=== PATIENT | male | born 1970 | race Caucasian/White ===

== ENCOUNTER 2017-02-08 19:50 | Emergency (ER) | payer BC, OTHER ==
[2017-02-08 20:15] VITALS: BP 114/55
[2017-02-08] MEDS ORDERED: HYDROmorphone 1 MG/ML Syringe IVPUSH ONE (20:39)
[2017-02-08] MEDS ORDERED: Ondansetron 4 MG/2 ML SDV IVPUSH ONE (20:39)
--- NOTE | 2017-02-08 22:22 | EDM.PDOC ---
ED HPI GENERAL MEDICAL PROBLEM - General Chief Complaint: Flank Pain Stated Complaint: LEFT FLANK PAIN Time Seen by Provider: 02/08/17 20:19 Source of Information: Reports: Patient History Limitations: Reports: No Limitations - History of Present Illness INITIAL COMMENTS - FREE TEXT/NARRATIVE: This is a 46-year-old male. Onset yesterday with back pain he thought that he might have thrown his back out due to the pain but it time it would come and go yesterday it wasn't really bad this morning but around 5 PM marked increased pain going into the left flank area now. He has a history of kidney stones in the past times one not sure which side it was on. He noticed his urine was dark this morning but he did not seen any blood. He's had no nausea or vomiting with the pain. Due to the intensity of the pain in the left flank he comes to the ER bleeding he has a kidney stone. The pain does not radiate into the groin at this time but stays in the left flank region. Left Flank Pain Score (Numeric/FACES): 8 - Related Data Home Meds: Home Meds Acetaminophen/oxyCODONE [Percocet 325-5 MG] 1 tab PO Q4H PRN #12 tablet [Rx] Ondansetron [Zofran ODT] 4 mg PO Q6H PRN #12 tab.dis 02/08/17 [Rx] Past Medical History Musculoskeletal History: Reports: Other (See Below) Other Musculoskeletal History: wrist fracture - Past Surgical History Male Surgical History: Reports: Vasectomy Social & Family History - Tobacco Use Smoking Status *Q: Never Smoker - Caffeine Use Caffeine Use: Reports: Coffee - Recreational Drug Use Recreational Drug Use: No ED ROS GENERAL - Review of Systems Review Of Systems: See Below Constitutional: Denies: Fever, Chills HEENT: Reports: No Symptoms Respiratory: Reports: No Symptoms Cardiovascular: Reports: No Symptoms Endocrine: Reports: No Symptoms GI/Abdominal: Reports: Abdominal Pain. Denies: Nausea, Vomiting : Reports: Flank Pain Musculoskeletal: Reports: No Symptoms Skin: Reports: No Symptoms Neurological: Reports: No Symptoms Psychiatric: Reports: No Symptoms Hematologic/Lymphatic: Reports: No Symptoms ED EXAM, GI/ABD - Physical Exam Exam: See Below Exam Limited By: No Limitations General Appearance: Alert, WD/WN, Mild Distress Eyes: Bilateral: Normal Appearance Ears: Normal External Exam Nose: Normal Inspection Throat/Mouth: Normal Inspection, Normal Lips, Normal Voice Head: Normocephalic Neck: Supple Respiratory/Chest: No Respiratory Distress, Lungs Clear Cardiovascular: Regular Rate, Rhythm, No Murmur GI/Abdominal: Soft, Other (He does have some mild left flank pain on percussion , no rib tenderness noted, no other abdominal tenderness on palpation) Back Exam: Normal Inspection, Other (Palpation of his lower back paraspinal muscles and midline reveals no tenderness whatsoever and there is no thoracic tenderness on palpation) Extremities: Normal Inspection, Normal Range of Motion Neurological: Alert, Oriented Psychiatric: Normal Affect, Normal Mood Skin Exam: Warm, Dry Course - Vital Signs Last Recorded V/S: Last Vital Signs Temp 98.0 F 02/08/17 20:06 Pulse 83 02/08/17 20:06 Resp 20 02/08/17 20:06 BP 114/55 L 02/08/17 20:06 Pulse Ox 95 02/08/17 20:06 - Orders/Labs/Meds Orders: Active Orders 24 hr Category Date Time Status Chest Abdomen Pelvis wo Cont [CT] Stat Exams 02/08/17 20:38 Taken Labs: Laboratory Tests 02/08/17 Range/Units 20:08 Urine Color Yellow (Yellow) Urine Appearance Clear (Clear) Urine pH 7.0 (5.0-8.0) Ur Specific [place] 1.020 (1.005-1.030) Urine Protein Trace H (Negative) Urine Glucose (UA) Negative (Negative) Urine Ketones Negative (Negative) Urine Occult Blood Negative (Negative) Urine Nitrite Negative (Negative) Urine Bilirubin Negative (Negative) Urine Urobilinogen 1.0 (0.2-1.0) Ur Leukocyte Esterase Negative (Negative) Urine RBC 0-5 (0-5) /hpf Urine WBC 0-5 (0-5) /hpf Ur Epithelial Cells 0-5 (0-5) /hpf Urine Bacteria Few (FEW) /hpf Urine Mucus Moderate H (FEW) /hpf Meds: Medications Discontinued Medications Generic Name Dose Route Start Last Admin Trade Name Freq PRN Reason Stop Dose Admin Hydromorphone HCl 0.5 mg 02/08/17 20:39 02/08/17 20:52 Dilaudid IVPUSH 02/08/17 20:40 0.5 mg ONETIME ONE Administration Ondansetron HCl 4 mg 02/08/17 20:39 02/08/17 20:50 Zofran IVPUSH 02/08/17 20:40 4 mg ONETIME ONE Administration - Radiology Interpretation Free Text/Narrative:: CT scan showed bilateral nephrolithiasis but they are in the kidney and a nonobstructing there is a 3 mm stone in the right kidney and 3 nonfractured stones in the left kidney measuring about 3 mm - Re-Assessments/Exams Free Text/Narrative Re-Assessment/Exam: 02/08/17 22:46 I spoke to the patient regarding the CAT scan results. I suggested he followup with his family doctor this week and maybe get a referral to a urologist if his pain continues Departure - Departure Time of Disposition: 22:47 Disposition: Home, Self-Care 01 Condition: good Clinical Impression: Nephrolithiasis, Renal colic on left side - Discharge Information Prescriptions: Acetaminophen/oxyCODONE [Percocet 325-5 MG] 1 tab PO Q4H PRN #12 tablet PRN Reason: Pain Ondansetron [Zofran ODT] 4 mg PO Q6H PRN #12 tab.dis PRN Reason: Nausea Instructions: Kidney Stones, [id number] Referrals: Danni Almaraz MD [Primary Care Provider] - Forms: ED Department Discharge Additional Instructions: Continue to drink lots of fluids, avoid teas and sodas, use the medication for nausea and pain as needed, if the pain is severe and the medicine isn't working and return to the ER, follow up with your family doctor for possible referral to urologist, return to the ER if needed - My Orders Last 24 Hours: My Active Orders 02/08/17 20:38 Chest Abdomen Pelvis wo Cont [CT] Stat - Assessment/Plan Last 24 Hours: My Active Orders 02/08/17 20:38 Chest Abdomen Pelvis wo Cont [CT] Stat
[2017-02-08] MEDS ORDERED: Acetaminophen/oxyCODONE 325-5 MG Tab PO ONE (23:33)
--- NOTE | 2017-02-09 12:57 | CT ---
CT chest Technique: Multiple axial sections were obtained from above the lung apices inferiorly through the lung bases. Intravenous contrast not utilized. Comparison: No previous chest imaging. Findings: Mediastinum and hilar regions show no adenopathy or mass. Very minimal atherosclerotic calcification noted within the aorta. No aneurysm is seen. No pericardial thickening is identified. Minimal dependent atelectasis is incidentally noted. Lungs otherwise are clear. Bone window settings were reviewed which show no rib fracture. Thoracic spine shows no discrete abnormality. Reconstructed sagittal images show the sternum to appear intact. Impression: 1. No abnormality identified on noncontrast CT study of the chest. Diagnostic code #1 I agree with preliminary report issued by [facility] ([facility] report finalized on 02/08/17, 11:19 PM Central Time) CT abdomen and pelvis Technique: Multiple axial sections were obtained from above the dome of the diaphragm inferiorly through the pubic symphysis. Intravenous and oral contrast not utilized. Comparison: Previous CT abdomen and pelvis exam of 09/20/13 is available. Findings: Noncontrast appearance of the liver and spleen appear within normal limits. Gallbladder shows no calcified gallstones. Adrenal glands show no nodule. Pancreas is within normal limits. Small nonobstructing calculi are seen within both kidneys measuring much less than 1 cm in size. No ureteral dilatation or ureteral stone is seen. Aorta shows no aneurysmal dilatation. No retroperitoneal adenopathy or mesenteric abnormalities are seen. Appendix is seen which is normal. No pelvic mass or adenopathy is noted. No free fluid or inflammatory change is seen within the abdomen or within the pelvis. Bone window settings were reviewed which appear within normal limits for the patient's age. Impression: 1. Small bilateral nonobstructing calculi within both kidneys. These are more numerous than on prior CT abdomen and pelvis exam. 2. No ureteral dilatation or ureteral stone is seen. 3. Nothing acute identified on noncontrast CT study of the abdomen and pelvis. Diagnostic code #2 I agree with preliminary report issued by [facility] ([facility] report finalized on 02/08/17, 11:19 PM Central Time)
== END 2017-02-08 23:47 | disposition home or self-care (01) ==
LOC: JD.ED 19:50
DX: N20.0 Calculus of kidney (principal)
CPT/HCPCS: 71250; 74176; 81001; 96374; 96375; 99284; A9270; J1170; J2405

== ENCOUNTER 2019-11-20 19:02 | Emergency (ER) | payer BC, OTHER ==
[2019-11-20 19:35] VITALS: BP 144/93; PULSE 78
[2019-11-20] MEDS ORDERED: Sodium Chloride 0.9% 10 ML Syringe FLUSH PRN (19:48)
[2019-11-20] MEDS ORDERED: Ondansetron 4 MG/2 ML SDV IVPUSH ONE (19:50)
[2019-11-20] MEDS ORDERED: HYDROmorphone 0.5 MG/0.5 ML Syringe IVPUSH ONE (19:50)
[2019-11-20] MEDS ORDERED: Ketorolac 30 MG/ML SDV IVPUSH ONE (19:50)
[2019-11-20] MEDS ORDERED: Sodium Chloride 0.9% 1,000 ML IV SCH (20:00)
--- NOTE | 2019-11-20 21:45 | EDM.PDOC ---
ED HPI GENERAL MEDICAL PROBLEM - General Chief Complaint: Abdominal Pain Stated Complaint: abdominal pain Time Seen by Provider: 11/20/19 19:37 Source of Information: Reports: Patient History Limitations: Reports: No Limitations - History of Present Illness INITIAL COMMENTS - FREE TEXT/NARRATIVE: Patient is a 49-year-old male who presents with abrupt onset of left lower quadrant abdominal pain that started approximately 2 hours prior to arrival. In nature. Does not radiate to his flank or groin. He is has some nausea associated with the pain. Patient does have a history of kidney stones approximately 5 years ago and states that this feels similar to when he had kidney stones in the past. Prior to 2 hours ago patient said he was feeling fine. Denies any fever or chills. He does state that his urine has been he voided prior to coming to the ER noticed that his urine was darker than normal, however he did not notice any obvious blood in the urine. Left Lower Abdomen Pain Score (Numeric/FACES): 8 - Related Data Allergies Allergy/AdvReac Type Severity Reaction Status Date / Time No Known Allergies Allergy Verified 11/20/19 19:31 Home Meds: Home Meds Tamsulosin [Tamsulosin 24 Hr] 0.4 mg PO DAILY #14 cap.er 11/20/19 [Rx] Past Medical History Genitourinary History: Reports: Renal Calculus Other Genitourinary History: vasectomy Musculoskeletal History: Reports: Other (See Below) Other Musculoskeletal History: wrist fracture - Past Surgical History HEENT Surgical History: Reports: Oral Surgery Male Surgical History: Reports: Vasectomy Social & Family History - Tobacco Use Smoking Status *Q: Never Smoker - Caffeine Use Caffeine Use: Reports: None - Recreational Drug Use Recreational Drug Use: No ED ROS GENERAL - Review of Systems Review Of Systems: Comprehensive ROS is negative, except as noted in HPI. ED EXAM, GI/ABD - Physical Exam Exam: See Below Exam Limited By: No Limitations General Appearance: Alert, WD/WN, Mild Distress Respiratory/Chest: No Respiratory Distress, Lungs Clear, Normal Breath Sounds, No Accessory Muscle Use, Chest Non-Tender Cardiovascular: Normal Peripheral Pulses, Regular Rate, Rhythm, No Edema, No Gallop, No JVD, No Murmur, No Rub GI/Abdominal Exam: Normal Bowel Sounds, Soft, Non-Tender, No Organomegaly, No Distention, No Abnormal Bruit, No Mass, Pelvis Stable Back Exam: Normal Inspection, Full Range of Motion. No: CVA Tenderness (L), CVA Tenderness (R) Neurological: Alert, Oriented, CN II-XII Intact, Normal Cognition, Normal Gait, Normal Reflexes, No Motor/Sensory Deficits Psychiatric: Normal Affect, Normal Mood Skin Exam: Warm, Dry, Intact, Normal Color, No Rash Course - Vital Signs Last Recorded V/S: Last Vital Signs Temp 98.1 F 11/20/19 19:32 Pulse 78 11/20/19 19:32 Resp 13 11/20/19 19:32 BP 144/93 H 11/20/19 19:32 Pulse Ox 100 11/20/19 19:32 - Orders/Labs/Meds Orders: Active Orders 24 hr Category Date Time Status Peripheral IV Care [RC] . DIRECTED Care 11/20/19 19:49 Active Strain Urine [RC] ASDIRECTED Care 11/20/19 20:29 Active Abdomen Pelvis wo Cont [CT] Stat Exams 11/20/19 19:48 Taken Sodium Chloride 0.9% [Normal Saline] 1,000 ml Med 11/20/19 20:00 Active IV ASDIRECTED Sodium Chloride 0.9% [Saline Flush] Med 11/20/19 19:48 Active 10 ml FLUSH ASDIRECTED PRN Peripheral IV Insertion Adult [OM.PC] Stat Oth 11/20/19 19:48 Ordered Medication Orders Sodium Chloride (Normal Saline) 1,000 mls @ 999 mls/hr IV ASDIRECTED WOODY Last Admin: 11/20/19 20:04 Dose: 999 mls/hr Sodium Chloride (Saline Flush) 10 ml FLUSH ASDIRECTED PRN PRN Reason: Keep Vein Open Last Admin: 11/20/19 20:02 Dose: 10 ml Labs: Laboratory Tests 11/20/19 11/20/19 11/20/19 Range/Units 20:15 20:15 21:20 WBC 12.18 H (4.23-9.07) K/mm3 RBC 5.72 (4.63-6.08) M/mm3 Hgb 15.6 (13.7-17.5) gm/dl Hct 46.7 (40.1-51.0) % MCV 81.6 (79.0-92.2) fl MCH 27.3 (25.7-32.2) pg MCHC 33.4 (32.2-35.5) g/dl RDW Std Deviation 40.6 (35.1-43.9) fL Plt Count 312 (163-337) K/mm3 MPV 10.9 (9.4-12.3) fl Neut % (Auto) 70.1 H (34.0-67.9) % Lymph % (Auto) 23.6 (21.8-53.1) % Evans % (Auto) 4.8 L (5.3-12.2) % Eos % (Auto) 1.0 (0.8-7.0) Baso % (Auto) 0.3 (0.1-1.2) % Neut # (Auto) 8.53 H (1.78-5.38) K/mm3 Lymph # (Auto) 2.88 (1.32-3.57) K/mm3 Evans # (Auto) 0.58 (0.30-0.82) K/mm3 Eos # (Auto) 0.12 (0.04-0.54) K/mm3 Baso # (Auto) 0.04 (0.01-0.08) K/mm3 Manual Slide Review Abnormal smear Sodium 142 (136-145) mEq/L Potassium 3.4 L (3.5-5.1) mEq/L Chloride 106 (98-107) mEq/L Carbon Dioxide 26 (21-32) mEq/L Anion Gap 13.4 (5-15) BUN 12 (7-18) mg/dL Creatinine 1.3 (0.7-1.3) mg/dL Est Cr Clr Drug Dosing 75.44 mL/min Estimated GFR (MDRD) 59 (>60) mL/min BUN/Creatinine Ratio 9.2 L (14-18) Glucose 104 (74-106) mg/dL Calcium 8.9 (8.5-10.1) mg/dL Total Bilirubin 0.3 (0.2-1.0) mg/dL AST 20 (15-37) U/L ALT 28 (16-63) U/L Alkaline Phosphatase 74 (46-116) U/L C-Reactive Protein 0.9 (<1.0) mg/dL Total Protein 7.9 (6.4-8.2) g/dl Albumin 3.5 (3.4-5.0) g/dl Globulin 4.4 gm/dL Albumin/Globulin Ratio 0.8 L (1-2) Urine Color Yellow (Yellow) Urine Appearance Clear (Clear) Urine pH 8.0 (5.0-8.0) Ur Specific [place] 1.025 (1.005-1.030) Urine Protein 1+ H (Negative) Urine Glucose (UA) Negative (Negative) Urine Ketones Negative (Negative) Urine Occult Blood 2+ H (Negative) Urine Nitrite Negative (Negative) Urine Bilirubin Negative (Negative) Urine Urobilinogen 4.0 H (0.2-1.0) Ur Leukocyte Esterase Negative (Negative) Urine RBC 20-30 H (0-5) /hpf Urine WBC 0-5 (0-5) /hpf Ur Squamous Epith Cells 0-5 (0-5) /hpf Urine Bacteria Few (FEW) /hpf Urine Mucus Moderate H (FEW) /hpf Meds: Medications Generic Name Dose Route Start Last Admin Trade Name Laura PRN Reason Stop Dose Admin Sodium Chloride 1,000 mls @ 999 mls/hr 11/20/19 20:00 11/20/19 20:04 Normal Saline IV 999 mls/hr ASDIRECTED WOODY Administration Sodium Chloride 10 ml 11/20/19 19:48 11/20/19 20:02 Saline Flush FLUSH 10 ml ASDIRECTED PRN Administration Keep Vein Open Discontinued Medications Generic Name Dose Route Start Last Admin Trade Name Laura PRN Reason Stop Dose Admin Hydromorphone HCl 0.5 mg 11/20/19 19:50 11/20/19 20:04 Dilaudid IVPUSH 11/20/19 19:51 0.5 mg ONETIME ONE Administration Ketorolac Tromethamine 30 mg 11/20/19 19:50 11/20/19 20:03 Toradol IVPUSH 11/20/19 19:51 30 mg ONETIME ONE Administration Ondansetron HCl 4 mg 11/20/19 19:50 11/20/19 20:02 Zofran IVPUSH 11/20/19 19:51 4 mg ONETIME ONE Administration Tamsulosin HCl 0.4 mg 11/20/19 22:01 Flomax PO 11/20/19 22:02 ONETIME ONE - Re-Assessments/Exams Free Text/Narrative Re-Assessment/Exam: 03/13/20 21:44 CT of the abdomen pelvis shows mild asymmetric prominence to the left intrarenal collecting system and proximal left ureter with a 5 mm proximal left ureteral calculus. Small amount of left-sided phrenic stranding which may be reactive but should be correlated with any concern for infection. Hematology was grossly unremarkable. Urinalysis was negative for any infection. Patient will be given a [facility] prescription for [place], Zofran, and Flomax. Discharge instructions as documented. Departure - Departure Time of Disposition: 21:57 Disposition: Home, Self-Care 01 Condition: Fair Clinical Impression: Nephrolithiasis - Discharge Information *PRESCRIPTION DRUG MONITORING PROGRAM REVIEWED*: Yes *COPY OF PRESCRIPTION DRUG MONITORING REPORT IN PATIENT ROBERT: No Prescriptions: Tamsulosin [Tamsulosin 24 Hr] 0.4 mg PO DAILY #14 cap.er Instructions: Kidney Stones, [id number] Referrals: Danni Almaraz MD [Primary Care Provider] - Forms: ED Department Discharge Additional Instructions: You were seen in the emergency department today for left lower abdominal pain of sudden onset. He CT was completed as well as blood work and urinalysis. CT did show a 5 mm kidney stone in your proximal left ureter. Your blood work was found to be normal. Urinalysis was positive for blood, however there are no signs of infection. You have been sent home with a urine strainer. Recommend that you strain your urine until the stone does pass. If you are able to capture the stone, you may return it to your primary care provider to have pathology done on it. You have been provided with an [facility] prescription for [place], Zofran, and Flomax. Take these medications as prescribed. If you should experience any new or worsening symptoms of concern, please do not hesitate to return to the emergency department. Sepsis Event Note - Evaluation Sepsis Screening Result: No Definite Risk - Focused Exam Vital Signs: Vital Signs Temp Pulse Resp BP Pulse Ox 11/20/19 19:32 98.1 F 78 13 144/93 H 100 Date Exam was Performed: 11/20/19 Time Exam was Performed: 22:02 - My Orders Last 24 Hours: My Active Orders 11/20/19 19:48 Abdomen Pelvis wo Cont [CT] Stat Sodium Chloride 0.9% [Saline Flush] 10 ml FLUSH ASDIRECTED PRN Peripheral IV Insertion Adult [OM.PC] Stat 11/20/19 19:49 Peripheral IV Care [RC] . DIRECTED 11/20/19 20:00 Sodium Chloride 0.9% [Normal Saline] 1,000 ml IV ASDIRECTED 11/20/19 20:29 Strain Urine [RC] ASDIRECTED - Assessment/Plan Last 24 Hours: My Active Orders 11/20/19 19:48 Abdomen Pelvis wo Cont [CT] Stat Sodium Chloride 0.9% [Saline Flush] 10 ml FLUSH ASDIRECTED PRN Peripheral IV Insertion Adult [OM.PC] Stat 11/20/19 19:49 Peripheral IV Care [RC] . DIRECTED 11/20/19 20:00 Sodium Chloride 0.9% [Normal Saline] 1,000 ml IV ASDIRECTED 11/20/19 20:29 Strain Urine [RC] ASDIRECTED
[2019-11-20] MEDS ORDERED: Tamsulosin 0.4 MG Cap.ER PO ONE (22:01)
--- NOTE | 2019-11-21 14:05 | CT ---
CT abdomen and pelvis Technique: Multiple axial sections were obtained from above the dome of the diaphragm inferiorly through the pubic symphysis. Intravenous and oral contrast not utilized. Study has been performed as a ureteral stone protocol. Comparison: Prior CT abdomen and pelvis exam of 02/08/17. Findings: Small nonobstructing calculi are noted within both kidneys. These appear fairly stable from previous exam. Left ureter is mildly prominent in size. This finding is due to an obstructing stone within the proximal ureter measuring about 4.4 mm in size. No additional ureteral calculi are seen. Visualized lung bases show nothing acute. Liver shows a minimal low density lesion within the right lobe measuring 5.8 mm in size which is felt compatible with a small cyst which is stable from previous CT. No additional abnormality is appreciated within the liver. Gallbladder contains no calcified gallstones. Spleen appears within normal limits. Adrenal glands show no nodule. Pancreas is within normal limits. Aorta shows no aneurysm. No retroperitoneal adenopathy or mesenteric abnormalities are seen. Appendix is seen which is normal in size. No pelvic mass or adenopathy is seen. Small fat-containing right inguinal hernia is noted. No bowel dilatation is seen. No free fluid is seen. Slight haziness noted around the celiac access which are is felt to be stable from prior CT exams and therefore chronic and therefore believed to be incidental. Bone window settings were reviewed which appear within normal limits. Impression: 1. 4.4 mm obstructing stone within the proximal left ureter causing mild proximal hydronephrosis. 2. Nonobstructing calculi within both kidneys. 3. No other acute abnormality is appreciated on noncontrast CT study of the abdomen and pelvis. Diagnostic code #3 This report was dictated in MDT I agree with preliminary report from [facility], finalized on 11/20/19, 9:46 PM Central Time
== END 2019-11-20 22:30 | disposition home or self-care (01) ==
LOC: JD.ED 19:02
DX: N13.2 Hydronephrosis with renal and ureteral calculous obstruction (principal)
CPT/HCPCS: 36415; 74176; 80053; 81001; 85025; 86140; 96361; 96374; 96375; 99284; A9270; J1170; J1885; J2405; J7030

== ENCOUNTER 2020-01-08 16:27 | Emergency (ER) | payer BC, OTHER ==
[2020-01-08 16:40] VITALS: BP 117/78; PULSE 82
[2020-01-08] MEDS ORDERED: Sodium Chloride 0.9% 1,000 ML IV STA (16:43)
[2020-01-08] MEDS ORDERED: Sodium Chloride 0.9% 10 ML Syringe FLUSH PRN (16:43)
[2020-01-08] MEDS ORDERED: Ondansetron 4 MG/2 ML SDV IVPUSH ONE (16:44)
[2020-01-08] MEDS ORDERED: HYDROmorphone 1 MG/ML Syringe IVPUSH ONE (16:44)
[2020-01-08] MEDS ORDERED: Ketorolac 30 MG/ML SDV IVPUSH ONE (16:44)
--- NOTE | 2020-01-08 16:59 | EDM.PDOC ---
ED HPI GENERAL MEDICAL PROBLEM - General Chief Complaint: Flank Pain Stated Complaint: 3 MM KIDNEY STONE CANT KEEP PAIN MEDS DOWN Time Seen by Provider: 01/08/20 16:37 Source of Information: Reports: Patient History Limitations: Reports: No Limitations - History of Present Illness INITIAL COMMENTS - FREE TEXT/NARRATIVE: The patient presents with left flank and groin pain and nausea and vomiting. This started this morning. He was seen at the walk in clinic today and diagnosed with a 3mm stone. He was given a shot of toradol. That did help but later today he had more pain, nausea and vomiting. He cannot keep anything down. He has a history of kidney stones. He has no fever, chills, cough, congestion or runny nose. He has no chest pain or shortness of breath. Onset: Sudden Duration: Hour(s): Location: Reports: Back, Pelvis Quality: Reports: Sharp Severity: Severe Improves with: Reports: None Worsens with: Reports: None Associated Symptoms: Reports: Nausea/Vomiting. Denies: Chest Pain, Cough, Fever /Chills, Headaches, Shortness of Breath - Related Data Allergies Allergy/AdvReac Type Severity Reaction Status Date / Time No Known Allergies Allergy Verified 01/08/20 16:36 Past Medical History Genitourinary History: Reports: Renal Calculus, Other (See Below) Other Genitourinary History: vasectomy Musculoskeletal History: Reports: Back Pain, Chronic, Other (See Below) Other Musculoskeletal History: wrist fracture - Past Surgical History HEENT Surgical History: Reports: Oral Surgery Male Surgical History: Reports: Vasectomy Social & Family History - Family History Family Medical History: Noncontributory - Tobacco Use Smoking Status *Q: Never Smoker Second Hand Smoke Exposure: No - Caffeine Use Caffeine Use: Reports: None - Recreational Drug Use Recreational Drug Use: No ED ROS GENERAL - Review of Systems Review Of Systems: See Below Constitutional: Reports: No Symptoms HEENT: Reports: No Symptoms Respiratory: Reports: No Symptoms Cardiovascular: Reports: No Symptoms Endocrine: Reports: No Symptoms GI/Abdominal: Reports: Abdominal Pain, Nausea, Vomiting : Reports: Other (groin pain) Musculoskeletal: Reports: Back Pain ED EXAM, RENAL/ - Physical Exam Exam: See Below Exam Limited By: No Limitations General Appearance: Alert, No Apparent Distress Ears: Normal External Exam Nose: Normal Inspection Head: Atraumatic, Normocephalic Neck: Normal Inspection Respiratory/Chest: No Respiratory Distress, Lungs Clear, Normal Breath Sounds Cardiovascular: Regular Rate, Rhythm, No Edema, No Murmur GI/Abdominal: Soft, Non-Tender, No Organomegaly, No Mass Neurological: Alert, Oriented, No Motor/Sensory Deficits Course - Vital Signs Last Recorded V/S: Last Vital Signs Temp 97.5 F 01/08/20 16:37 Pulse 82 01/08/20 16:37 Resp 14 01/08/20 16:37 BP 117/78 01/08/20 16:37 Pulse Ox 96 01/08/20 16:37 - Orders/Labs/Meds Orders: Active Orders 24 hr Category Date Time Status Peripheral IV Care [RC] . DIRECTED Care 01/08/20 16:43 Active Sodium Chloride 0.9% [Saline Flush] Med 01/08/20 16:43 Active 10 ml FLUSH ASDIRECTED PRN ED Antiemetic Medication Reflex [OM.PC] Stat Oth 01/08/20 16:43 Ordered Peripheral IV Insertion Adult [OM.PC] Stat Oth 01/08/20 16:43 Ordered Medication Orders Sodium Chloride (Saline Flush) 10 ml FLUSH ASDIRECTED PRN PRN Reason: Keep Vein Open Last Admin: 01/08/20 16:50 Dose: 10 ml Meds: Medications Generic Name Dose Route Start Last Admin Trade Name Freq PRN Reason Stop Dose Admin Sodium Chloride 10 ml 01/08/20 16:43 01/08/20 16:50 Saline Flush FLUSH 10 ml ASDIRECTED PRN Administration Keep Vein Open Discontinued Medications Generic Name Dose Route Start Last Admin Trade Name Freq PRN Reason Stop Dose Admin Hydromorphone HCl 1 mg 01/08/20 16:44 01/08/20 16:49 Dilaudid IVPUSH 01/08/20 16:45 1 mg ONETIME ONE Administration Hydromorphone HCl 0.5 mg 01/08/20 18:20 01/08/20 18:33 Dilaudid IVPUSH 01/08/20 18:21 0.5 mg ONETIME ONE Administration Sodium Chloride 1,000 mls @ 1,000 mls/hr 01/08/20 16:43 01/08/20 16:49 Normal Saline IV 01/08/20 17:42 1,000 mls/hr .BOLUS STA Administration Lactated Ringer's 1,000 mls @ 1,000 mls/hr 01/08/20 17:34 01/08/20 17:56 Ringers, Lactated IV 01/08/20 18:33 1,000 mls/hr .BOLUS ONE Administration Ketorolac Tromethamine 30 mg 01/08/20 16:44 01/08/20 16:49 Toradol IVPUSH 01/08/20 16:45 30 mg ONETIME ONE Administration Ondansetron HCl 4 mg 01/08/20 16:44 01/08/20 16:49 Zofran IVPUSH 01/08/20 16:45 4 mg ONETIME ONE Administration - Re-Assessments/Exams Free Text/Narrative Re-Assessment/Exam: 01/08/20 17:02 I ordered an IV NS 1L bolus, zofran 4mg IV, toradol 30mg IV, and dilaudid 1mg IV. 01/08/20 18:21 I ordered another liter of fluid. His pain was better but now it is starting to come back. I ordered more dilaudid 0.5mg IV. I will discharge him home after the second liter. Departure - Departure Time of Disposition: 19:00 Disposition: Home, Self-Care 01 Condition: Good Clinical Impression: Renal colic on left side, Nephrolithiasis - Discharge Information *PRESCRIPTION DRUG MONITORING PROGRAM REVIEWED*: Not Applicable *COPY OF PRESCRIPTION DRUG MONITORING REPORT IN PATIENT ROBERT: Not Applicable Referrals: Danni Almaraz MD [Primary Care Provider] - 1 Week Forms: ED Department Discharge Additional Instructions: Drink plenty of fluids. Take the flomax daily. Take tylenol or motrin for pain. If that does not help, try the norco. Take the zofran every 6 hours as needed for nausea and vomiting. Please return if you are worse. Sepsis Event Note - Evaluation Sepsis Screening Result: No Definite Risk - Focused Exam Vital Signs: Vital Signs Temp Pulse Resp BP Pulse Ox 01/08/20 16:37 97.5 F 82 14 117/78 96 Date Exam was Performed: 01/08/20 Time Exam was Performed: 18:47 - My Orders Last 24 Hours: My Active Orders 01/08/20 16:43 Peripheral IV Care [RC] . DIRECTED Sodium Chloride 0.9% [Saline Flush] 10 ml FLUSH ASDIRECTED PRN ED Antiemetic Medication Reflex [OM.PC] Stat Peripheral IV Insertion Adult [OM.PC] Stat - Assessment/Plan Last 24 Hours: My Active Orders 01/08/20 16:43 Peripheral IV Care [RC] . DIRECTED Sodium Chloride 0.9% [Saline Flush] 10 ml FLUSH ASDIRECTED PRN ED Antiemetic Medication Reflex [OM.PC] Stat Peripheral IV Insertion Adult [OM.PC] Stat
[2020-01-08] MEDS ORDERED: Lactated Ringers 1,000 ML IV ONE (17:34)
[2020-01-08] MEDS ORDERED: HYDROmorphone 0.5 MG/0.5 ML Syringe IVPUSH ONE (18:20)
== END 2020-01-08 18:53 | disposition home or self-care (01) ==
LOC: JD.ED 16:27
DX: N20.0 Calculus of kidney (principal); Z98.52 Vasectomy status
CPT/HCPCS: 96360; 96361; 99284; J1170; J1885; J2405; J7030; J7120

== ENCOUNTER 2020-03-08 02:07 | Emergency (ER) | payer BC, OTHER ==
[2020-03-08 02:17] VITALS: BP 104/69; PULSE 59
--- NOTE | 2020-03-08 04:54 | EDM.PDOC ---
ED HPI GENERAL MEDICAL PROBLEM - General Chief Complaint: Flank Pain Stated Complaint: KIDNEY STONE Time Seen by Provider: 03/08/20 03:48 - History of Present Illness INITIAL COMMENTS - FREE TEXT/NARRATIVE: 49-year-old male presents the emergency room with abdominal pain. Patient has a history of kidney stones and is been bothered frequently by them this last spring. He awoke several hours prior to coming in with left-sided flank pain and lower abdominal pain radiating into his groin. Patient denies any fevers or chills no nausea or vomiting. The patient took a Metcalf before coming in and this is helped significantly. Patient had a CT done here where it looks like he had a 4.4 mm stone in the left ureter. He was seen last month in the walk-in clinic had a CT done where he had a 3 mm stone in the left ureter. Left Flank Pain Score (Numeric/FACES): 5 - Related Data Allergies Allergy/AdvReac Type Severity Reaction Status Date / Time No Known Allergies Allergy Verified 03/08/20 02:17 Home Meds: Home Meds Acetaminophen/HYDROcodone [Metcalf 325-5 MG] 1 - 2 tab PO Q6H PRN #20 tablet 03/08/20 [Rx] Ondansetron [Zofran ODT] 4 mg PO Q6H PRN #12 tab.dis 03/08/20 [Rx] Past Medical History Genitourinary History: Reports: Renal Calculus, Other (See Below) Other Genitourinary History: vasectomy Musculoskeletal History: Reports: Back Pain, Chronic, Other (See Below) Other Musculoskeletal History: wrist fracture - Past Surgical History HEENT Surgical History: Reports: Oral Surgery Male Surgical History: Reports: Vasectomy Social & Family History - Family History Family Medical History: Noncontributory - Tobacco Use Smoking Status *Q: Never Smoker Second Hand Smoke Exposure: No - Caffeine Use Caffeine Use: Reports: Coffee, Soda - Recreational Drug Use Recreational Drug Use: No ED ROS GENERAL - Review of Systems Review Of Systems: See Below Constitutional: Reports: No Symptoms Respiratory: Reports: No Symptoms Cardiovascular: Reports: No Symptoms GI/Abdominal: Reports: Abdominal Pain. Denies: Constipation, Diarrhea, Nausea, Vomiting : Reports: Flank Pain. Denies: Frequency, Hematuria, Urgency Neurological: Reports: No Symptoms ED EXAM, GI/ABD - Physical Exam Exam: See Below Exam Limited By: No Limitations General Appearance: Alert, No Apparent Distress, Other (The patient is actually doing pretty well at this point does not need anything for pain or nausea) Head: Atraumatic, Normocephalic Neck: Normal Inspection, Supple, Non-Tender, Full Range of Motion. No: Lymphadenopathy (L), Lymphadenopathy (R) Respiratory/Chest: No Respiratory Distress, Lungs Clear, Normal Breath Sounds Cardiovascular: Regular Rate, Rhythm, No Edema, No Murmur GI/Abdominal Exam: Normal Bowel Sounds, Soft, Other (He has some left-sided discomfort however this is not aggravated by elevation. No rigidity rebound or guarding) Back Exam: Normal Inspection. No: CVA Tenderness (L), CVA Tenderness (R) Neurological: Alert, Oriented, Normal Cognition Course - Vital Signs Last Recorded V/S: Last Vital Signs Temp 36.6 C 03/08/20 02:14 Pulse 59 L 03/08/20 02:14 Resp 18 03/08/20 02:14 BP 104/69 03/08/20 02:14 Pulse Ox 96 03/08/20 02:14 - Orders/Labs/Meds Labs: Laboratory Tests 03/08/20 03/08/20 Range/Units 02:45 03:55 Sodium 142 (136-145) mEq/L Potassium 3.8 (3.5-5.1) mEq/L Chloride 105 (98-107) mEq/L Carbon Dioxide 23 (21-32) mEq/L Anion Gap 17.8 H (5-15) BUN 17 (7-18) mg/dL Creatinine 1.1 (0.7-1.3) mg/dL Est Cr Clr Drug Dosing 89.16 mL/min Estimated GFR (MDRD) > 60 (>60) mL/min BUN/Creatinine Ratio 15.5 (14-18) Glucose 120 H (74-106) mg/dL Calcium 8.9 (8.5-10.1) mg/dL Urine Color Yellow (Yellow) Urine Appearance Clear (Clear) Urine pH 5.5 (5.0-8.0) Ur Specific [place] > or = 1.030 (1.005-1.030) Urine Protein Trace H (Negative) Urine Glucose (UA) Negative (Negative) Urine Ketones Negative (Negative) Urine Occult Blood 2+ H (Negative) Urine Nitrite Negative (Negative) Urine Bilirubin Negative (Negative) Urine Urobilinogen 0.2 (0.2-1.0) Ur Leukocyte Esterase Negative (Negative) Urine RBC 20-30 H (0-5) /hpf Urine WBC 0-5 (0-5) /hpf Ur Epithelial Cells 0-5 (0-5) /hpf Urine Bacteria Few (FEW) /hpf Urine Mucus Many H (FEW) /hpf - Re-Assessments/Exams Free Text/Narrative Re-Assessment/Exam: 03/08/20 04:58 The patient was seen here on [address] done that showed a 4.4 mm stone in the left ureter he was seen in the walk-in clinic approximately mid December had another CT scan done which according the patient showed a 3 mm stone. I will not repeat a CT at this time he is afebrile. I did check his renal function again and this is slightly better than the last time it was checked. At this point the patient does not require immediate pain management however he is out of Metcalf now I will give him a refill of this and refill his Zofran in case he has any issues with this. I have recommended the patient follow-up with his regular physician later this week. Departure - Departure Time of Disposition: 05:00 Disposition: Home, Self-Care 01 Clinical Impression: Renal colic on left side, Nephrolithiasis - Discharge Information Referrals: PCP,None [Primary Care Provider] - Additional Instructions: Turn to the emergency room with any questions problems or worsening symptoms. You should have refills for your Zofran and your Metcalf at [facility] pharmacy. Take these as directed. Follow-up with your physician at the end of this week Sepsis Event Note (ED) - Evaluation Sepsis Screening Result: No Definite Risk - Focused Exam Vital Signs: Vital Signs Temp Pulse Resp BP Pulse Ox 03/08/20 02:14 36.6 C 59 L 18 104/69 96
== END 2020-03-08 05:20 | disposition home or self-care (01) ==
LOC: JD.ED 02:07
DX: N20.0 Calculus of kidney (principal); Z87.442 Personal history of urinary calculi
CPT/HCPCS: 36415; 80048; 81001; 99284

== ENCOUNTER 2023-08-11 08:43 | Emergency (ER) | payer BC, OTHER ==
[2023-08-11 08:53] VITALS: BP 137/104; PULSE 81
[2023-08-11] MEDS ORDERED: Ketorolac 30 MG/ML SDV IVPUSH ONE (08:57)
[2023-08-11] MEDS ORDERED: Sodium Chloride 0.9% 10 ML Syringe FLUSH PRN (08:57)
[2023-08-11] MEDS ORDERED: Ondansetron 4 MG/2 ML SDV ONE (09:00)
[2023-08-11] MEDS: Ondansetron 8 MG in Sodium Chloride 0.9% 50 ML IV ONE ×2 (09:03→09:30)
[2023-08-11 09:05] LABS: BASOPHILS PERCENT AUTO 0.6 % (0.0-1.0); EOSINOPHILS ABSOLUTE AUTO 0.2 K/mm3 (0.0-0.4); EOSINOPHILS PERCENT AUTO 2.9 % (0.0-6.0); HEMATOCRIT 46.2 % (42.0-52.0); HEMOGLOBIN 15.4 gm/dl (14.0-18.0); IMMATURE GRAN ABSOLUTE AUTO 0.01 K/mm3 (0.00-0.05); IMMATURE GRAN PERCENT AUTO 0.2 % (0.0-0.4); LYMPHOCYTES ABSOLUTE AUTO 3.3 K/mm3 (1.0-4.8); LYMPHOCYTES PERCENT AUTO 50.6 % (24.0-44.0); MEAN CORPUSCULAR HEMOGLOBIN 28.2 pg (28.0-32.0); MEAN CORPUSCULAR HGB CONC 33.3 g/dl (32.0-36.0); MEAN CORPUSCULAR VOLUME 84.6 fl (83.0-99.0); MEAN PLATELET VOLUME 9.9 fl (9.4-12.4); MONOCYTES ABSOLUTE AUTO 0.6 K/mm3 (0.0-0.8); MONOCYTES PERCENT AUTO 8.6 % (0.0-8.0); NEUTROPHILS ABSOLUTE AUTO 2.5 K/mm3 (1.8-7.7); NEUTROPHILS PERCENT AUTO 37.1 % (41.0-71.0); PLATELET COUNT,PLT 248 K/mm3 (150-400); RED BLOOD CELL COUNT 5.46 M/mm3 (4.52-5.90)
[2023-08-11 09:23] LABS: A/G RATIO 0.7 (1-2); ALANINE AMINOTRANSFERASE,ALT 39 U/L (16-63); ALBUMIN 3.1 g/dl (3.4-5.0); ALKALINE PHOSPHATASE 73 U/L (46-116); ANION GAP 16.5 (5-15); ASPARTATE AMNIOTRANSFERASE,AST 34 U/L (15-37); BILIRUBIN TOTAL 0.3 mg/dL (0.2-1.0); BLOOD UREA NITROGEN,BUN 11 mg/dL (7-18); BUN/CREATININE RATIO 9.2 (14-18); CALCIUM 8.6 mg/dL (8.5-10.1); CARBON DIOXIDE,CO2 23 mEq/L (21-32); CHLORIDE,CL 107 mEq/L (98-107); CREATININE 1.2 mg/dL (0.7-1.3); ESTIMATED GFR 73 mL/min (>60); GLUCOSE RANDOM 137 mg/dL (70-99); MAGNESIUM 1.8 mg/dL (1.8-2.4); POTASSIUM,K 3.5 mEq/L (3.5-5.1); PROTEIN TOTAL,TP 7.5 g/dl (6.4-8.2); SODIUM,NA 143 mEq/L (136-145)
[2023-08-11] MEDS ORDERED: Naloxone 0.4 MG/ML SDV IVPUSH PRN ×2 (09:30→11:47)
[2023-08-11] MEDS ORDERED: Ondansetron 4 MG/2 ML SDV IVPUSH ONE (09:30)
[2023-08-11] MEDS ORDERED: HYDROmorphone 1 MG/ML Syringe IVPUSH ONE ×2 (09:30→11:47)
[2023-08-11] MEDS ORDERED: Sodium Chloride 0.9% 1,000 ML IV ONE (10:12)
[2023-08-11 11:26] LABS: APPEARANCE,URINE CLEAR (Clear); BILIRUBIN,URINE 1+ (Negative); COLOR,URINE YELLOW (Yellow); GLUCOSE,URINE NEGATIVE (Negative); KETONES,URINE NEGATIVE (Negative); LEUKOCYTE ESTERASE,URINE NEGATIVE (Negative); NITRITE,URINE NEGATIVE (Negative); OCCULT BLOOD,URINE 2+ (Negative); PH,URINE 5.5 (5.0-8.0); PROTEIN,URINE TRACE (Negative)
[2023-08-11 11:35] LABS: BACTERIA,URINE MODERATE /hpf (FEW); MUCUS,URINE MODERATE /hpf (FEW); SQUAMOUS EPITHELIAL CELLS,UR 0-5 /hpf (0-5); WBC,URINE 0-5 /hpf (0-5)
== END 2023-08-11 13:10 | disposition home or self-care (01) ==
LOC: JD.ED 08:43
DX: N20.1 Calculus of ureter (principal)
CPT/HCPCS: 36415; 74176; 80053; 81001; 83735; 85025; 96365; 96375; 96376; 99284; J1170; J1885; J2405; J3490; J7030